=== PATIENT | female | born 1995 ===

== ENCOUNTER 2016-11-23 18:46 | Emergency (ER) | payer OTHER ==
[2016-11-23 18:57] VITALS: BP 142/74; PULSE 65; RESP 17; TEMP 97.1; O2SAT 99
[2016-11-23 20:21] LABS: BASO % 0.3 % (0.0-2.0); EOS # 0.1 K/uL (0.0-0.7); LYMPH # 2.9 K/uL (1.0-4.3); LYMPH % 24.9 % (20.0-40.0); MEAN CELL VOLUME 76.4 fl (81.0-99.0); MEAN CORPUSCULAR HEMOGLOBIN 24.6 pg (27.0-31.0); MEAN CORPUSCULAR HGB CONC 32.1 g/dL (33.0-37.0); MEAN PLATELET VOLUME 8.5 fl (7.2-11.7); MONO # 0.6 K/uL (0.0-0.8); NEUT # 8.2 K/uL (1.8-7.0); NEUT % 68.8 % (50.0-75.0); WHITE BLOOD COUNT 11.9 K/uL (4.8-10.8)
--- NOTE | 2016-11-23 20:37 | ED PDOC ---
Lower Extremity Pain/Injury Time Seen by Provider: 11/23/16 19:21 Chief Complaint (Nursing): Lower Extremity Problem/Injury Chief Complaint (Provider): Lower Extremity Problem History Per: Patient History/Exam Limitations: no limitations Onset/Duration Of Symptoms: Days (4x) Current Symptoms Are (Timing): Still Present Severity: Moderate Additional Complaint(s): 21 year old female with no pertinent medical history presents to the ED with complaints of right lower extremity pain that started 4x days ago and has been worsening. She reports that she has been experiencing progressively worsening right posterior thigh and calf pain. She denies any trauma or injury to her leg , denies taking oral contraceptives, recent flights or long car rides. She says that the pain radiates from her right calf to her right buttock and that today she has been experiencing mild right lower back pain and she has been having trouble bearing weight on her left side. She reports taking ibuprofen with no relief. She denies having a fever, chills, cough, and shortness of breath. PMD: Martinez Mora MD. Past Medical History Reviewed: Historical Data, Nursing Documentation, Vital Signs Vital Signs: Last Vital Signs Temp 97.1 F L 11/23/16 18:54 Pulse 65 11/23/16 18:54 Resp 17 11/23/16 18:54 BP 142/74 11/23/16 18:54 Pulse Ox 99 11/23/16 18:54 - Medical History PMH: No Chronic Diseases - Surgical History Surgical History: Appendectomy - Family History Family History: States: Unknown Family Hx - Social History Current smoker - smoking cessation education provided: No Alcohol: None Drugs: Denies - Immunization History Hx Tetanus Toxoid Vaccination: No Hx Influenza Vaccination: No Hx Pneumococcal Vaccination: No - Home Medications Home Medications: Ambulatory Orders Medication Instructions Recorded Ibuprofen [Motrin] 600 mg PO Q6 PRN #20 tab 07/02/15 Cyclobenzaprine [Cyclobenzaprine 10 mg PO TID PRN #15 tab 11/23/16 HCl] - Allergies Allergies/Adverse Reactions: Allergies Allergy/AdvReac Type Severity Reaction Status Date / Time No Known Allergies Allergy Verified 11/23/16 18:54 Review of Systems ROS Statement: Except As Marked, All Systems Reviewed And Found Negative Constitutional: Negative for: Fever, Chills Respiratory: Negative for: Cough, Shortness of Breath Musculoskeletal: Positive for: Back Pain (mild right lower back pain), Leg Pain (right calf and thigh pain, radiates to her right buttock) Physical Exam - Reviewed Nursing Documentation Reviewed: Yes Vital Signs Reviewed: Yes - Physical Exam Appears: Positive for: Well, Non-toxic, Uncomfortable Head Exam: Positive for: ATRAUMATIC, NORMOCEPHALIC Skin: Positive for: Normal Color, Warm, Dry Cardiovascular/Chest: Positive for: Regular Rate, Rhythm Respiratory: Positive for: Normal Breath Sounds. Negative for: Respiratory Distress Back: Positive for: Normal Inspection Extremity: Positive for: Normal ROM. Negative for: Tenderness, Calf Tenderness Neurologic/Psych: Positive for: Alert, Oriented (3x) - Laboratory Results Result Diagrams: 11/23/16 20:10 11/23/16 20:10 - ECG O2 Sat by Pulse Oximetry: 99 (RA) Pulse Ox Interpretation: Normal Medical Decision Making Medical Decision Makin:21 Initial impression: 21 year old female with right calf and thigh pain. Initial plan: * CMP * ceatine phosphokinase * udip * CBC * toradol 10mg IV * US duplex lower extremity venous right * reevaluation 22:53 US duplex lower extremity venous right read and reviewed by radiologist FINDINGS: Deep veins: Normal color and spectral Doppler flow. Normal compressibility. No deep vein thrombosis from common femoral to popliteal vein. Superficial veins: No thrombosis. Soft tissues: No popliteal cyst. Lymph nodes: 2.0 x 0.4 cm inguinal lymph node. IMPRESSION: 1. No evidence of DVT within RIGHT lower extremity. 2. Incidental/non-acute findings are described above. Thank you for allowing us to participate in the care of your patient. 22:55 Labs show no clinically significant abnormalities. Upon reevaluation, patient's symptoms have improved. Patient is stable for discharge, and will be discharged with Rx for flexeril for lumbar radiculopathy and instructions to follow up with her PMD Dr. Mora in 2x days. There is agreement for discharge plan. Return if symptoms persist or worsen. Scribe Attestation: Documented by Juliana Armenta, acting as a scribe for Lacho Palma MD. Provider Scribe Attestation: All medical record entries made by the Scribe were at my direction and personally dictated by me. I have reviewed the chart and agree that the record accurately reflects my personal performance of the history, physical exam, medical decision making, and the department course for this patient. I have also personally directed, reviewed, and agree with the discharge instructions and disposition. Disposition - Clinical Impression Clinical Impression: Radiculopathy with lower extremity symptoms - Disposition Referrals: Martinez Mora MD [Staff Provider] - Disposition Time: 22:55 Condition: IMPROVED Prescriptions: Cyclobenzaprine [Cyclobenzaprine HCl] 10 mg PO TID PRN #15 tab PRN Reason: back/leg pain Instructions: Lumbar Radiculopathy (ED)
[2016-11-23 20:50] LABS: ALB/GLOB RATIO 1.4 (1.0-2.1); ALKALINE PHOSPHATASE 71 U/L (38-126); ALT/SGPT 26 U/L (9-52); AST/SGOT 22 U/L (14-36); BILIRUBIN,TOTAL 0.1 mg/dl (0.2-1.3); BLOOD UREA NITROGEN 9 mg/dl (7-17); CALCIUM 9.6 mg/dL (8.4-10.2); CARBON DIOXIDE 25 mmol/L (22-30); CHLORIDE 103 mmol/L (98-107); GFR AFRICAN-AMERICAN > 60; GLUCOSE,RANDOM 88 mg/dL (65-105); SODIUM 141 mmol/l (132-148); TOTAL PROTEIN 7.9 G/DL (6.3-8.2)
--- NOTE | 2016-11-23 22:53 | US ---
EXAM: US Duplex Right Lower Extremity Veins CLINICAL HISTORY: 21 years old, female; Pain; Leg, lower; Right; Additional info: R/O dvt TECHNIQUE: Real-time ultrasound scan of the veins of the right lower extremity with color Doppler flow, spectral waveform analysis and compression. COMPARISON: No relevant prior studies available. FINDINGS: Deep veins: Normal color and spectral Doppler flow. Normal compressibility. No deep vein thrombosis from common femoral to popliteal vein. Superficial veins: No thrombosis. Soft tissues: No popliteal cyst. Lymph nodes: 2.0 x 0.4 cm inguinal lymph node. IMPRESSION: 1. No evidence of DVT within RIGHT lower extremity. 2. Incidental/non-acute findings are described above.
== END 2016-11-23 23:29 | disposition home or self-care (01) ==
LOC: H.ER 18:46
DX: M54.16 Radiculopathy, lumbar region (principal)